=== PATIENT | female | born 1990 | race Two or more races ===

== ENCOUNTER 2019-05-01 21:08 | Emergency (ER) | payer MEDICAID ==
[~2019-05-01] VITALS: Ht 154.9 cm; Wt 71.2 kg
[2019-05-01 21:34] VITALS: BP 136/81
[2019-05-01 23:35] LABS: Basophils # (auto) 0 uL; Eosinophils # (auto) 0.3 uL; Eosinophils % (auto) 2.9 % (0.0-7.0); Lymphocytes # (auto) 4.8 uL; Monocytes # (auto) 1.2 uL; Neutrophils # (auto) 5.3 uL; White Blood Cell 11.7 10^3/uL (4.4-10.8)
[2019-05-01 23:37] LABS: Basophils % (auto) 0.3 % (0.0-2.0); Hematocrit 31.9 % (36.0-46.0); Hemoglobin 10.3 g/dL (12.2-16.2); Mean Corpuscular Hemoglobin 27.7 pg (28.0-32.0); Mean Corpuscular Hgb Conc. 32.4 g/dL (32.0-36.0); Mean Corpuscular Volume 85.5 fL (80.0-100.0); Monocytes % (auto) 10.6 % (0.0-12.0); Neutrophils % (auto) 45.2 % (37.0-80.0); Nucleated Red Blood Cells % 0.1 %; Platelet Count (auto) 479 10^3/uL (140-450); Red Blood Cells 3.73 10^6/uL (4.0-5.20); Red Cell Distribution Width 15.1 % (11.8-14.3)
[2019-05-01 23:49] LABS: Urine Bacteria MANY /hpf (None Seen); Urine Blood TRACE /uL (Negative); Urine Mucus FEW (None Seen); Urine Specific Gravity 1.023 (1.001-1.035); Urine WBC 23 /hpf (0 - 5)
[2019-05-01 23:57] LABS: Albumin 2.5 g/dL (3.4-5.0); Anion Gap 7 (5-15); BUN/Creatinine Ratio 40.6; Blood Urea Nitrogen 28 mg/dL (7-18); Calcium 9.3 mg/dL (8.5-10.1); Carbon Dioxide 24 mmol/L (21-32); Chloride 108 mmol/L (98-107); GFR African American 128 mL/min; GFR Non-African American 105 mL/min; Glucose 80 mg/dL (74-106); Lipase 311 U/L (73-393); Potassium 3.7 mmol/L (3.5-5.1); Sodium 139 mmol/L (136-145)
[2019-05-02] LABS: Alanine Aminotransferase 54 U/L (13-56); Alkaline Phosphatase 161 U/L (45-117); Aspartate Aminotransferase 42 U/L (15-37); Bilirubin, Total < 0.1 mg/dL (0.2-1.0); Total Protein 6.7 g/dL (6.4-8.2)
== END 2019-05-02 04:16 | disposition left against medical advice (07) ==
LOC: ER 21:08
DX: R10.30 Lower abdominal pain, unspecified (principal); R31.9 Hematuria, unspecified; M79.89 Other specified soft tissue disorders; Z53.21 Procedure and treatment not carried out due to patient leaving prior to being seen by health care provider
CPT/HCPCS: 36415; 80053; 81001; 81025; 83690; 83880; 85025

== ENCOUNTER → 2019-10-19 | Emergency (ER) | payer MEDICAID ==
[~2019-10-19] VITALS: Ht 157.5 cm; Wt 72.6 kg
[~2019-10-19] MED LIST: InsuLIN REG 1unit/0.01ml Soln (100units/ml) IV ONE; MORPHINE SULF INJ 2 MG/ML SYRINGE 1ML IV ONE; ONDANSETRON HCL 4 MG/2 ML VIAL IV ONE; SODIUM CHLORIDE 0.9% 1,000 ML IV ONE
[2019-10-19 03:30] LABS: Eosinophils # (auto) 0.1 10 ^3/uL (0-0.8); Hemoglobin 11.1 g/dL (12.2-16.2); Mean Corpuscular Hemoglobin 26.2 pg (28.0-32.0)
[2019-10-19 03:32] LABS: Basophils # (auto) 0.1 10 ^3/uL (0-0.2); Eosinophils % (auto) 1.9 % (0.0-7.0); Hematocrit 34.8 % (36.0-46.0); Lymphocytes # (auto) 2.3 10 ^3/uL (0.4-5.4); Lymphocytes % (auto) 33.2 % (10.0-50.0); Mean Corpuscular Volume 82.1 fL (80.0-100.0); Monocytes # (auto) 0.5 10 ^3/uL (0-1.3); Monocytes % (auto) 7.8 % (0.0-12.0); Neutrophils # (auto) 3.9 10 ^3/uL (1.6-8.6); Neutrophils % (auto) 56.1 % (37.0-80.0); Nucleated Red Blood Cells % 0.1 %; Platelet Count (auto) 372 10^3/uL (140-450); Red Blood Cells 4.24 10^6/uL (4.0-5.20); Red Cell Distribution Width 16.8 % (11.8-14.3)
[2019-10-19 03:50] LABS: Albumin 1.7 g/dL (3.4-5.0); Calcium 8.3 mg/dL (8.5-10.1); Potassium 3.9 mmol/L (3.5-5.1)
[2019-10-19 03:53] LABS: Bilirubin, Total 0.2 mg/dL (0.2-1.0); Total Protein 6.3 g/dL (6.4-8.2)
[2019-10-19 04:10] LABS: BUN/Creatinine Ratio 14.3
[2019-10-19 04:30] VITALS: BP 158/91
== END | disposition home or self-care (01) ==
LOC: EDUNIT# 02:22 → EDBD 02:29 → ER 02:29
DX: S06.0X9A Concussion with loss of consciousness of unspecified duration, initial encounter (principal); S80.11XA Contusion of right lower leg, initial encounter; E11.65 Type 2 diabetes mellitus with hyperglycemia; I10 Essential (primary) hypertension; W01.198A Fall on same level from slipping, tripping and stumbling with subsequent striking against other object, initial encounter; Y93.89 Activity, other specified; Y92.89 Other specified places as the place of occurrence of the external cause; Y99.8 Other external cause status
CPT/HCPCS: 36415; 36600; 70450; 72125; 80053; 82010; 82805; 82962; 85025; 96361; 96374; 96375; 99285; J1815; J2270; J2405; J7030